=== PATIENT | female | born 1980 | race Caucasian/White ===

== ENCOUNTER → 2018-07-29 | Outpatient (CLI) | payer OTHER | LOC: FIMAGING 09:57 | PROVIDERS: ATTEND Advanced Practice Midwife | DX: N63.0 Unspecified lump in unspecified breast (principal) ==

== ENCOUNTER 2019-02-02 18:32 | Emergency (ER) | payer OTHER ==
[2019-02-02] MEDS ORDERED: TDAP ADULT 0.5 ML INJ (BOOSTRIX) IM ONE (19:10)
[2019-02-02] MEDS ORDERED: SKIN ADHESIVE (DERMABOND) 1 EACH TP ONE (19:35)
--- NOTE | 2019-02-02 20:18 | EDPHY ---
H & P Smoking Status: Never smoked Time Seen by Provider: 02/02/19 19:03 HPI/ROS: Chief complaint: Left pointer finger laceration History of present illness: This is a 38-year-old female who presents to the emergency department for evaluation of left pointer finger laceration. 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 She reports mild pain and bleeding. Bleeding controlled with a dressing. She can still move the finger well. No report of abnormal coolness or paresthesias. She is unsure of when she received her last tetanus immunization. (Joss Esquivel) Physical Exam: General: Alert, nontoxic Skin: There are 2 1 cm lacerations to the tip of the left pointer finger that are somewhat macerated. There is a 0.5 cm laceration just proximal to the nail. Musculoskeletal: She can flex and extend the left pointer finger in the DIP, PIP and MCP joint. Vascular: Capillary refill is brisk in the left pointer finger. Neurologic: Decreased light touch and two-point discrimination in the very tip of the finger otherwise intact throughout the rest of the finger. (Joss Esquivel) Constitutional: Initial Vital Signs Temperature (C) 36.6 C 02/02/19 18:39 Heart Rate 79 02/02/19 18:39 Respiratory Rate 16 02/02/19 18:39 Blood Pressure 112/74 02/02/19 18:39 O2 Sat (%) 96 02/02/19 18:39 O2 Delivery Mode Room Air Allergies/Adverse Reactions: Penicillins Allergy (Verified 02/02/19 18:39) Home Medications: Medication Instructions Recorded NK [No Known Home Meds] 02/02/19 MDM/Departure - MDM Procedures: Procedure: Laceration repair. Verbal consent was obtained from the patient. The 1 cm laceration on the left pointer finger was anesthetized in the usual fashion. The wound was irrigated, draped and explored to its base with a gloved finger. There were no deep structures involved. No tendon injury was identified. The wound was repaired with 6 0 Prolene, 3 simple interrupted sutures. The wound repair was simple. The procedure was performed by myself. Procedure: Laceration repair. Verbal consent was obtained from the patient. The 1 cm laceration on the left pointer finger was anesthetized in the usual fashion. The wound was irrigated, draped and explored to its base with a gloved finger. There were no deep structures involved. No tendon injury was identified. The wound was repaired with 6 0 Prolene, 3 simple interrupted sutures. The wound repair was simple. The procedure was performed by myself. Procedure: Laceration repair. Verbal consent was obtained from the patient. The 0.5 cm laceration on the left pointer finger was anesthetized in the usual fashion. The wound was irrigated, draped and explored to its base with a gloved finger. There were no deep structures involved. No tendon injury was identified. The wound was repaired with Dermabond. The wound repair was simple. The procedure was performed by myself. (Joss Esquivel) Medications Given: Discontinued Medications Diphtheria/Tetanus/Acell Pertussis (Boostrix) 0.5 ml IM .ONCE ONE Stop: 02/02/19 19:11 Last Admin: 02/02/19 19:29 Dose: 0.5 ml ED Course/Re-evaluation: Patient was seen under the supervision of my secondary supervising physician Dr. Mahendra Forrest. Patient presents to the emergency department for a left pointer finger laceration. She has good musculoskeletal control. I am concerned for possible nerve injury to the distal tip of the finger. X-rays negative. Wounds are cleaned and repaired. Fingers dressed. She is referred to hand surgery and I have stressed the importance of follow-up for recheck. Return precautions given. (Joss Esquivel) I did not see this patient while she was in the emergency department. However her care was discussed with the PA while the patient was in the department. I agree with treatment plan and management (Mahendra Forrest) Differential Diagnosis: Included but not limited to laceration, deep structure injury, foreign body contamination (Joss Esquivel) - Depart Disposition: Home, Routine, Self-Care Clinical Impression: Finger laceration Condition: Good Instructions: Finger Laceration (ED) Additional Instructions: Please call and arrange a follow-up appointment with a hand surgeon for continued care Keep wound clean with soap and water 2-3 times daily, then apply antibacterial ointment Ibuprofen as directed as needed for pain Stitches to be removed in 7-10 days If symptoms worsen or new symptoms develop return to the emergency room for recheck Referrals: Byron Buitrago MD [Medical Doctor] - As per Instructions
[2019-02-02 20:26] VITALS: BP 118/72
== END 2019-02-02 20:25 | disposition home or self-care (01) ==
PROC: 0HQGXZZ Repair Left Hand Skin, External Approach (ICD-10-PCS; principal; 2019-02-02)
DX: S61.211A Laceration without foreign body of left index finger without damage to nail, initial encounter (principal); Z23 Encounter for immunization; W29.0XXA Contact with powered kitchen appliance, initial encounter; Y93.89 Activity, other specified; Y92.9 Unspecified place or not applicable; Y99.9 Unspecified external cause status